=== PATIENT | female | born 1950 | race Caucasian/White ===

== ENCOUNTER 2017-10-15 10:28 | Inpatient (IN) ==
[2017-10-15 11:08] LABS: Baso % (Auto) 0.6 % (0.0-2.0); Eos # (Auto) 0.1 th/mm3 (0.0-0.4); Eos % (Auto) 0.8 % (0.0-4.0); Hematocrit 39.7 % (35.0-46.0); Hemoglobin 13.3 gm/dL (11.6-15.3); Lymph # (Auto) 1.2 th/mm3 (1.0-4.8); Lymph % (Auto) 17.3 % (9.0-44.0); Mean Corpuscular HGB Conc 33.5 % (32.0-36.0); Mean Corpuscular Hemoglobin 28.5 pg (27.0-34.0); Mean Corpuscular Volume 85.2 fL (80.0-100.0); Mean Platelet Volume 8.7 fL (7.0-11.0); Mono # (Auto) 0.8 th/mm3 (0.0-0.9); Neut # (Auto) 4.6 th/mm3 (1.8-7.7); Neut % (Auto) 69.3 % (16.0-70.0); Platelet Count 280 th/mm3 (150-450); Red Blood Count 4.66 mil/mm3 (4.00-5.30); Red Cell Distribution Width 14.4 % (11.6-17.2); White Blood Count 6.7 th/mm3 (4.0-11.0)
[2017-10-15 11:29] LABS: Alanine Aminotransferase 14 U/L (10-53); Anion Gap 9 meq/L (5-15); Aspartate Aminotransferase 18 U/L (15-37); Blood Urea Nitrogen 13 mg/dL (7-18); Calcium 9.1 mg/dL (8.5-10.1); Carbon Dioxide 26.2 meq/L (21.0-32.0); Chloride 108 meq/L (98-107); Glomerular Filtration Rate 62 mL/min (>89); Glucose,Random 90 mg/dL (74-106); Potassium 4.1 meq/L (3.5-5.1); Sodium 143 meq/L (136-145)
[2017-10-15 11:40] LABS: Alkaline Phosphatase 124 U/L (45-117); Total Protein 7.2 g/dL (6.4-8.2)
[2017-10-15 13:03] LABS: Bilirubin,Urine Negative (Negative); Clarity,Urine Hazy (Clear); Color,Urine Yellow (Yellw/Straw); Glucose,Urine (UA) Negative (Negative); Hyaline Casts,Urine 10 /lpf (0-3); Leukocyte Esterase,Urine Trace (Negative); Mucus,Urine Few /lpf (Occasional); Nitrite,Urine Negative (Negative); Specific Gravity,Urine 1.014 (1.002-1.035); Squamous Epithelial Cell,Urine <1 /hpf (0-5)
[2017-10-15 13:06] LABS: Amphetamine Screen,Urine Neg (Neg); Barbiturate Screen,Urine Neg (Neg); Cannabinoid Screen,Urine Neg (Neg); Cocaine Screen,Urine Neg (Neg)
[2017-10-15 13:08] LABS: Opiate Screen,Urine Neg (Neg)
[2017-10-15 13:44] LABS: Creatine Kinase 153 U/L (26-192)
[2017-10-15 13:57] LABS: Creatine Kinase MB 1.5 ng/mL (0.5-3.6)
--- NOTE | 2017-10-15 14:14 | ED ---
HPI General Chief Complaint: Psychiatric Symptoms Stated Complaint: Chest pain Time Seen by Provider: 10/15/17 13:11 Source: patient and family Mode of arrival: ambulatory Limitations: no limitations History of Present Illness HPI Narrative: 67-year-old female presents the ED for evaluation after 3 days of hearing voices in the middle of the night. She states that the voices tell her that they are going to harm her and her family members. Patient denies any psychiatric history. She states she does not take any medications. She denies SI or HI. She denies any illicit drug or alcohol use. She complains of intermittent headaches which she relates to a distant traumatic brain injury. She also states that she had chest pain, palpitations associated with an episode of heightened anxiety, described "as a panic attack" this morning before presenting to the ED. Resolved on presentation. Patient denies chronic health problems, takes no daily medications. Her family member at bedside states that the patient has a history of schizophrenia "but that was a long long time ago." Related Data Home Medications Medication Instructions Recorded Confirmed No Known Home Medications 10/15/17 10/15/17 Allergies Allergy/AdvReac Type Severity Reaction Status Date / Time Penicillins Allergy Difficulty Verified 10/15/17 13:53 Breathing Review of Systems Except as stated in HPI: all other systems reviewed are negative [facility] Medical History Medical History Breast tumor (Acute) H/O: hysterectomy (Acute) Inguinal hernia (Acute) TBI (traumatic brain injury) (Acute) Surgical History Surgical History H/O gastric bypass (Acute) Hx of tonsillectomy (Acute) Social History Social History Substance History: No History of Abuse Smoking Status: Former smoker How Often Do You Have a Drink Containing Alcohol: Never Recent Travel in [facility] within the Last 8 Weeks: No Recent Out of Country Travel within the Last 8 Weeks: No Immunization History Tetanus Immunization: >5 Years Exam Narrative Exam Narrative: GENERAL: Anxious white female in no acute distress. SKIN: Focused skin assessment warm/dry. HEAD: Atraumatic. Normocephalic. EYES: Pupils equal and round. No scleral icterus. No injection or drainage. ENT: No nasal bleeding or discharge. Mucous membranes pink and moist. NECK: Trachea midline. No JVD. CARDIOVASCULAR: Regular rate and rhythm. No murmur appreciated. RESPIRATORY: No accessory muscle use. Clear to auscultation. Breath sounds equal bilaterally. GASTROINTESTINAL: Abdomen soft, non-tender, nondistended. Hepatic and splenic margins not palpable. Active bowel sounds. MUSCULOSKELETAL: No obvious deformities. No clubbing. No cyanosis. No edema. Observed to walk with a normal gait. NEUROLOGICAL: Awake and alert. No obvious cranial nerve deficits. Motor grossly within normal limits. Normal speech. PSYCHIATRIC: Anxious, tangential, pressured speech. She does not seem to be responding to any internal stimuli. Course Initial Documented Vital Signs Temperature 98.6 F 10/15/17 10:43 Pulse Rate 90 10/15/17 10:43 Respiratory Rate 20 10/15/17 10:43 Blood Pressure 151/94 H 10/15/17 10:43 Pulse Oximetry 97 10/15/17 10:43 Last Documented Vital Signs Temperature 98.6 F 10/15/17 10:43 Pulse Rate 90 10/15/17 10:43 Respiratory Rate 20 10/15/17 10:43 Blood Pressure 151/94 H 10/15/17 10:43 Pulse Oximetry 97 10/15/17 10:43 Medical Decision Making MDM Narrative Medical decision making narrative: 67-year-old female presents the ED for voluntary psychiatric evaluation. Patient reports auditory hallucinations. She also complains of intermittent headaches and and episode of chest pain with palpitations that she describes as a panic attack before presentation today. Now resolved. Vitals reviewed. Physical exam is reassuring. The patient does have pressured speech, is tangential. She does not seem to be responding to internal stimuli. CBC, CMP, TSH, UA, EKG, cardiac enzymes, CT brain all without acute abnormality. Patient is medically clear for psychiatric evaluation. Differential Diagnosis Differential Diagnosis: Adjustment disorder versus anxiety versus bipolar versus depression versus dementia versus electrolyte disorder versus malingering versus mood disorder versus ODD versus psychosis versus PTSD versus schizophrenia versus schizoaffective disorder versus substance-induced mood disorder versus other Lab Data Result diagrams: 10/15/17 10:53 10/15/17 10:53 Lab Results 10/15/17 10/15/17 10/15/17 Range/Units 10:53 10:53 10:53 WBC 6.7 (4.0-11.0) th/mm3 RBC 4.66 (4.00-5.30) mil/mm3 Hgb 13.3 (11.6-15.3) gm/dL Hct 39.7 (35.0-46.0) % MCV 85.2 (80.0-100.0) fL MCH 28.5 (27.0-34.0) pg MCHC 33.5 (32.0-36.0) % RDW 14.4 (11.6-17.2) % Plt Count 280 (150-450) th/mm3 MPV 8.7 (7.0-11.0) fL Neut % (Auto) 69.3 (16.0-70.0) % Lymph % (Auto) 17.3 (9.0-44.0) % [place] % (Auto) 12.0 H (0.0-8.0) % Eos % (Auto) 0.8 (0.0-4.0) % Baso % (Auto) 0.6 (0.0-2.0) % Neut # (Auto) 4.6 (1.8-7.7) th/mm3 Lymph # (Auto) 1.2 (1.0-4.8) th/mm3 [place] # (Auto) 0.8 (0.0-0.9) th/mm3 Eos # (Auto) 0.1 (0.0-0.4) th/mm3 Baso # (Auto) 0.0 (0.0-0.2) th/mm3 WBC Differential . Differential Comment Auto diff final Sodium 143 (136-145) meq/L Potassium 4.1 (3.5-5.1) meq/L Chloride 108 H (98-107) meq/L Carbon Dioxide 26.2 (21.0-32.0) meq/L Anion Gap 9 (5-15) meq/L BUN 13 (7-18) mg/dL Creatinine 0.90 (0.50-1.00) mg/dL Estimated GFR 62 L (>89) mL/min Random Glucose 90 (74-106) mg/dL Calcium 9.1 (8.5-10.1) mg/dL Total Bilirubin 0.8 (0.2-1.0) mg/dL AST 18 (15-37) U/L ALT 14 (10-53) U/L Alkaline Phosphatase 124 H (45-117) U/L Total Creatine Kinase 153 (26-192) U/L CK-MB (CK-2) 1.5 (0.5-3.6) ng/mL Troponin I Less than 0.02 L (0.02-0.05) ng/mL Total Protein 7.2 (6.4-8.2) g/dL Albumin 4.0 (3.4-5.0) g/dL TSH 3.120 (0.358-3.740) uIU/mL Urine Color (Yellw/Straw) Urine Clarity (Clear) Urine pH (5.0-8.5) Ur Specific [place] (1.002-1.035) Urine Protein (Neg-Trace) mg/dL Urine Glucose (UA) (Negative) mg/dL Urine Ketones (Negative) mg/dL Urine Occult Blood (Negative) Urine Nitrate (Negative) Urine Bilirubin (Negative) Urine Urobilinogen (Less than 2) mg/dL Ur Leukocyte Esterase (Negative) Urine RBC (0-3) /hpf Urine WBC (0-5) /hpf Ur Squamous Epith Cells (0-5) /hpf Hyaline Casts (0-3) /lpf Urine Mucus (Occasional) /lpf Urine Opiates Screen (Neg) Ur Barbiturates Screen (Neg) Ur Amphetamines Screen (Neg) U Benzodiazepines Scrn (Neg) Urine Cocaine Screen (Neg) U Cannabinoids Screen (Neg) Serum Alcohol Less than 3 (0-5) mg/dL 10/15/17 10/15/17 Range/Units 11:34 11:34 WBC (4.0-11.0) th/mm3 RBC (4.00-5.30) mil/mm3 Hgb (11.6-15.3) gm/dL Hct (35.0-46.0) % MCV (80.0-100.0) fL MCH (27.0-34.0) pg MCHC (32.0-36.0) % RDW (11.6-17.2) % Plt Count (150-450) th/mm3 MPV (7.0-11.0) fL Neut % (Auto) (16.0-70.0) % Lymph % (Auto) (9.0-44.0) % [place] % (Auto) (0.0-8.0) % Eos % (Auto) (0.0-4.0) % Baso % (Auto) (0.0-2.0) % Neut # (Auto) (1.8-7.7) th/mm3 Lymph # (Auto) (1.0-4.8) th/mm3 [place] # (Auto) (0.0-0.9) th/mm3 Eos # (Auto) (0.0-0.4) th/mm3 Baso # (Auto) (0.0-0.2) th/mm3 WBC Differential Differential Comment Sodium (136-145) meq/L Potassium (3.5-5.1) meq/L Chloride (98-107) meq/L Carbon Dioxide (21.0-32.0) meq/L Anion Gap (5-15) meq/L BUN (7-18) mg/dL Creatinine (0.50-1.00) mg/dL Estimated GFR (>89) mL/min Random Glucose (74-106) mg/dL Calcium (8.5-10.1) mg/dL Total Bilirubin (0.2-1.0) mg/dL AST (15-37) U/L ALT (10-53) U/L Alkaline Phosphatase (45-117) U/L Total Creatine Kinase (26-192) U/L CK-MB (CK-2) (0.5-3.6) ng/mL Troponin I (0.02-0.05) ng/mL Total Protein (6.4-8.2) g/dL Albumin (3.4-5.0) g/dL TSH (0.358-3.740) uIU/mL Urine Color Yellow (Yellw/Straw) Urine Clarity Hazy H (Clear) Urine pH 5.0 (5.0-8.5) Ur Specific [place] 1.014 (1.002-1.035) Urine Protein Negative (Neg-Trace) mg/dL Urine Glucose (UA) Negative (Negative) mg/dL Urine Ketones Trace H (Negative) mg/dL Urine Occult Blood Negative (Negative) Urine Nitrate Negative (Negative) Urine Bilirubin Negative (Negative) Urine Urobilinogen 2.0 H (Less than 2) mg/dL Ur Leukocyte Esterase Trace H (Negative) Urine RBC 1 (0-3) /hpf Urine WBC 2 (0-5) /hpf Ur Squamous Epith Cells <1 (0-5) /hpf Hyaline Casts 10 (0-3) /lpf Urine Mucus Few H (Occasional) /lpf Urine Opiates Screen Neg (Neg) Ur Barbiturates Screen Neg (Neg) Ur Amphetamines Screen Neg (Neg) U Benzodiazepines Scrn Neg (Neg) Urine Cocaine Screen Neg (Neg) U Cannabinoids Screen Neg (Neg) Serum Alcohol (0-5) mg/dL Imaging Data Radiologist's impression: Head CT 10/15/17 13:30 CONCLUSION: 1. No acute intracranial abnormality. Discharge Plan Discharge Disposition Patient Disposition: 30 Still Patient Discharge Condition Condition: Stable Discharge Details Diagnosis: Medical clearance for psychiatric admission Physicians Team ED Provider: Tariq Zimmerman ED Midlevel Provider: Maricruz Castaneda Primary Care Provider: Primary Care Santo,Dona Rxs /Orders / Referrals /Forms Prescriptions: No Action No Known Home Medications RF: 0 Status ED Status: Medically Cleared
--- NOTE | 2017-10-15 14:44 | CT ---
EXAM DATE: 10/15/2017 2:38 PM EDT AGE/SEX: 67 years / Female INDICATIONS: Altered mental status. CLINICAL DATA: This is the patient's initial encounter. Patient reports that signs and symptoms have been present for 1 day and indicates a pain score of 0/10. MEDICAL/SURGICAL HISTORY: None. None. RADIATION DOSE: 56.35 CTDI (mGy) COMPARISON: No prior exams available for comparison. TECHNIQUE: CT of the head without contrast. Using automated exposure control and adjustment of the mA and/or kV according to patient size, radiation dose was kept as low as reasonably achievable to ob tain optimal diagnostic quality images. DICOM format image data is available electronically for revi ew and comparison. FINDINGS: Cerebrum: Mild diffuse cerebral atrophy. The ventricles are normal for degree of atrophy. No evidenc e of midline shift, mass lesion, hemorrhage or acute infarction. No extraaxial fluid collections are seen. Supraclinoid internal carotid artery plaque. Posterior Fossa: The cerebellum and brainstem are intact. The 4th ventricle is midline. The cerebe llopontine angle is unremarkable. Extracranial: The visualized portion of the orbits is intact. Skull: The calvaria is intact. No evidence of skull fracture. CONCLUSION: 1. No acute intracranial abnormality. Electronically signed by: Daniel Mata MD 10/15/2017 2:43 PM EDT
[2017-10-15] MEDS ORDERED: Aluminum/Magnesium/Simethacone Susp 30 ML UDC PO PRN (15:48)
--- NOTE | 2017-10-15 15:55 | ED ---
HPI - Psych - General Source: patient, family Mode of arrival: ambulatory Limitations: altered mental status - History of Present Illness MD complaint: other (Auditory hallucinations) Onset (ago): week(s) Duration: constant, getting worse History of same: No Relieving factors: none Exacerbating factors: none Associated psychiatric symptoms: auditory hallucinations Associated symptoms: headache Treatments prior to arrival: none - General Chief Complaint: Psychiatric Symptoms Stated Complaint: Chest pain Time Seen by Provider: 10/15/17 13:11 - History of Present Illness HPI Narrative: This is a 67-year-old , female who presents voluntarily to this facility or auditory hallucinations. She has been placed under a Ha[place]on act by the emergency room PA. She has not been previously treated by the psychiatric department at this facility. Reviewed electronic medical record, labs, discuss case with staff. Patient was examined in her room in the main ED. Is awake, alert, and oriented 4. Her speech is clear, rapid, pressured, and tangential. She denies suicidal or homicidal ideation. She endorses auditory hallucinations which she reported began approximately a week ago in the middle of the night when she awoke to a voice which said "I will kill her". Since then she maintains that she has been hearing voices telling her that they are going to kill her and her daughter to. Her daughter advises that prior to that her mother had complained about the neighbors making too much noise, and she reports that are no neighbors making noise. I can elicit no delusional material. There is no indication of internal stimulation nor thought blocking. Her mood is anxious and her affect is labile. She became irritated with this provider on multiple occasions stating "this hospital almost killed me". 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 She made for 17 years ago. She states that she has never been treated for mental illness. Denies any previous suicide attempts. She does report her father recently of Alzheimer's. She denies smoking cigarettes, drinking alcohol, or using drugs. She reports that she has 5 daughters and lives with her youngest, Kerrie who is at the bedside. Her daughter advises is gotten to the point that the mother is afraid to sleep in her room house and wanted to sleep in a car recently. (Laura Damon) - Related Data Home Medications Medication Instructions Recorded Confirmed No Known Home Medications 10/15/17 10/15/17 Allergies Allergy/AdvReac Type Severity Reaction Status Date / Time Penicillins Allergy Difficulty Verified 10/15/17 13:53 Breathing PMFSH - History History Provided By: Patient, Significant Other - Medical History Medical History: Medical History (Last Reviewed 10/15/17 @ 16:20 by LUNA Branham) Breast tumor H/O: hysterectomy Inguinal hernia TBI (traumatic brain injury) - Surgical History Surgical History: Surgical History (Last Reviewed 10/15/17 @ 16:20 by LUNA Branham) H/O gastric bypass Hx of tonsillectomy - Tobacco History Smoking Status: Former smoker - Alcohol History How Often Do You Have a Drink Containing Alcohol: Never - Substance Use History Substance History: No History of Abuse - Travel History Recent Travel in the [place] Within the Last 8 Weeks: No Recent Travel Out of the Country Within the Last 8 Weeks: No - Immunization History Tetanus Immunization: >5 Years Psychiatric History - Psychiatric History Psychiatric Treatment History: Denies Previous Treatment Physical Exam - General Limitations: no limitations General appearance: alert Mental Status Examination Appearance: Appropriate, Well dressed/well groomed Consciousness: Alert, Vigilant Orientation: x4 Motor Activity: Normal gait Speech: Unremarkable Language: Adequate Fund of Knowledge: Adequate Attention and Concentration: Easily distracted Memory: Unremarkable Mood: Anxious Affect: Labile Thought Process & Associations: Loose associations, Tangential Thought Content: Hallucinations Hallucination Type: Auditory Delusion Type: None Suicidal Ideation: No Suicidal Plan: No Suicidal Intention: No Homicidal Ideation: No Homicidal Plan: No Homicidal Intention: No Insight: Fair Judgment: Impulsive Initial Documented Vital Signs Temperature 98.6 F 10/15/17 10:43 Pulse Rate 90 10/15/17 10:43 Respiratory Rate 20 10/15/17 10:43 Blood Pressure 151/94 H 10/15/17 10:43 Pulse Oximetry 97 10/15/17 10:43 Last Documented Vital Signs Temperature 98.6 F 10/15/17 10:43 Pulse Rate 90 10/15/17 10:43 Respiratory Rate 20 10/15/17 10:43 Blood Pressure 151/94 H 10/15/17 10:43 Pulse Oximetry 97 10/15/17 10:43 MDM - Psych - Diagnosis (1) Unspecified psychosis Status: Acute - Lab Data Attestation: I reviewed the patient's lab results. Result diagrams: 10/15/17 10:53 10/15/17 10:53 - [facility] Narrative Medical decision making narrative: Given that this patient has a new onset psychosis with auditory hallucinations that are interfering with her life to the point that she is afraid to sleep in her own home, she will be admitted to a locked inpatient psychiatric unit for further evaluation and treatment as deemed necessary. She will be admitted under the [place]on act. (Laura Damon) - Lab Data Lab Results 10/15/17 10/15/17 10/15/17 Range/Units 10:53 10:53 10:53 WBC 6.7 (4.0-11.0) th/mm3 RBC 4.66 (4.00-5.30) mil/mm3 Hgb 13.3 (11.6-15.3) gm/dL Hct 39.7 (35.0-46.0) % MCV 85.2 (80.0-100.0) fL MCH 28.5 (27.0-34.0) pg MCHC 33.5 (32.0-36.0) % RDW 14.4 (11.6-17.2) % Plt Count 280 (150-450) th/mm3 MPV 8.7 (7.0-11.0) fL Neut % (Auto) 69.3 (16.0-70.0) % Lymph % (Auto) 17.3 (9.0-44.0) % [place] % (Auto) 12.0 H (0.0-8.0) % Eos % (Auto) 0.8 (0.0-4.0) % Baso % (Auto) 0.6 (0.0-2.0) % Neut # (Auto) 4.6 (1.8-7.7) th/mm3 Lymph # (Auto) 1.2 (1.0-4.8) th/mm3 [place] # (Auto) 0.8 (0.0-0.9) th/mm3 Eos # (Auto) 0.1 (0.0-0.4) th/mm3 Baso # (Auto) 0.0 (0.0-0.2) th/mm3 WBC Differential . Differential Comment Auto diff final Sodium 143 (136-145) meq/L Potassium 4.1 (3.5-5.1) meq/L Chloride 108 H (98-107) meq/L Carbon Dioxide 26.2 (21.0-32.0) meq/L Anion Gap 9 (5-15) meq/L BUN 13 (7-18) mg/dL Creatinine 0.90 (0.50-1.00) mg/dL Estimated GFR 62 L (>89) mL/min Random Glucose 90 (74-106) mg/dL Calcium 9.1 (8.5-10.1) mg/dL Total Bilirubin 0.8 (0.2-1.0) mg/dL AST 18 (15-37) U/L ALT 14 (10-53) U/L Alkaline Phosphatase 124 H (45-117) U/L Total Creatine Kinase 153 (26-192) U/L CK-MB (CK-2) 1.5 (0.5-3.6) ng/mL Troponin I Less than 0.02 L (0.02-0.05) ng/mL Total Protein 7.2 (6.4-8.2) g/dL Albumin 4.0 (3.4-5.0) g/dL TSH 3.120 (0.358-3.740) uIU/mL Urine Color (Yellw/Straw) Urine Clarity (Clear) Urine pH (5.0-8.5) Ur Specific [place] (1.002-1.035) Urine Protein (Neg-Trace) mg/dL Urine Glucose (UA) (Negative) mg/dL Urine Ketones (Negative) mg/dL Urine Occult Blood (Negative) Urine Nitrate (Negative) Urine Bilirubin (Negative) Urine Urobilinogen (Less than 2) mg/dL Ur Leukocyte Esterase (Negative) Urine RBC (0-3) /hpf Urine WBC (0-5) /hpf Ur Squamous Epith Cells (0-5) /hpf Hyaline Casts (0-3) /lpf Urine Mucus (Occasional) /lpf Urine Opiates Screen (Neg) Ur Barbiturates Screen (Neg) Ur Amphetamines Screen (Neg) U Benzodiazepines Scrn (Neg) Urine Cocaine Screen (Neg) U Cannabinoids Screen (Neg) Serum Alcohol Less than 3 (0-5) mg/dL 10/15/17 10/15/17 Range/Units 11:34 11:34 WBC (4.0-11.0) th/mm3 RBC (4.00-5.30) mil/mm3 Hgb (11.6-15.3) gm/dL Hct (35.0-46.0) % MCV (80.0-100.0) fL MCH (27.0-34.0) pg MCHC (32.0-36.0) % RDW (11.6-17.2) % Plt Count (150-450) th/mm3 MPV (7.0-11.0) fL Neut % (Auto) (16.0-70.0) % Lymph % (Auto) (9.0-44.0) % [place] % (Auto) (0.0-8.0) % Eos % (Auto) (0.0-4.0) % Baso % (Auto) (0.0-2.0) % Neut # (Auto) (1.8-7.7) th/mm3 Lymph # (Auto) (1.0-4.8) th/mm3 [place] # (Auto) (0.0-0.9) th/mm3 Eos # (Auto) (0.0-0.4) th/mm3 Baso # (Auto) (0.0-0.2) th/mm3 WBC Differential Differential Comment Sodium (136-145) meq/L Potassium (3.5-5.1) meq/L Chloride (98-107) meq/L Carbon Dioxide (21.0-32.0) meq/L Anion Gap (5-15) meq/L BUN (7-18) mg/dL Creatinine (0.50-1.00) mg/dL Estimated GFR (>89) mL/min Random Glucose (74-106) mg/dL Calcium (8.5-10.1) mg/dL Total Bilirubin (0.2-1.0) mg/dL AST (15-37) U/L ALT (10-53) U/L Alkaline Phosphatase (45-117) U/L Total Creatine Kinase (26-192) U/L CK-MB (CK-2) (0.5-3.6) ng/mL Troponin I (0.02-0.05) ng/mL Total Protein (6.4-8.2) g/dL Albumin (3.4-5.0) g/dL TSH (0.358-3.740) uIU/mL Urine Color Yellow (Yellw/Straw) Urine Clarity Hazy H (Clear) Urine pH 5.0 (5.0-8.5) Ur Specific [place] 1.014 (1.002-1.035) Urine Protein Negative (Neg-Trace) mg/dL Urine Glucose (UA) Negative (Negative) mg/dL Urine Ketones Trace H (Negative) mg/dL Urine Occult Blood Negative (Negative) Urine Nitrate Negative (Negative) Urine Bilirubin Negative (Negative) Urine Urobilinogen 2.0 H (Less than 2) mg/dL Ur Leukocyte Esterase Trace H (Negative) Urine RBC 1 (0-3) /hpf Urine WBC 2 (0-5) /hpf Ur Squamous Epith Cells <1 (0-5) /hpf Hyaline Casts 10 (0-3) /lpf Urine Mucus Few H (Occasional) /lpf Urine Opiates Screen Neg (Neg) Ur Barbiturates Screen Neg (Neg) Ur Amphetamines Screen Neg (Neg) U Benzodiazepines Scrn Neg (Neg) Urine Cocaine Screen Neg (Neg) U Cannabinoids Screen Neg (Neg) Serum Alcohol (0-5) mg/dL
--- NOTE | 2017-10-15 20:15 | ECG ---
Date Performed: 10/15/2017 Time Performed: 10:53:42 PTAGE: 67 years EKG: Sinus rhythm LOW QRS VOLTAGE IN PRECORDIAL LEADS BORDERLINE ECG NO PREVIOUS TRACING DOCTOR: Daniela Genao Interpretating Date/Time 10/15/2017 20:14:53
[2017-10-16 07:20] LABS: Anion Gap 8 meq/L (5-15); Blood Urea Nitrogen 8 mg/dL (7-18); Carbon Dioxide 29.3 meq/L (21.0-32.0); Chloride 101 meq/L (98-107); Cholesterol 153 mg/dL (120-200); Glomerular Filtration Rate Greater Than 89 mL/min (>89); Glucose,Random 86 mg/dL (74-106); Potassium 3.3 meq/L (3.5-5.1); Sodium 138 meq/L (136-145)
[2017-10-16 07:23] LABS: Chol/HDL Ratio 1.88 Ratio; HDL Cholesterol 81.2 mg/dL (40.0-60.0); LDL Cholesterol,Calculated 59 mg/dL (0-99); Triglycerides 63 mg/dL (42-150)
[2017-10-16] MEDS ORDERED: Aluminum/Magnesium/Simethacone Susp 30 ML UDC PO PRN (12:49)
--- NOTE | 2017-10-16 13:01 | P.HPPSY ---
Provisional Diagnosis Admission Date: October 15, 2017 15:53 Rillito I.: Psychotic disorder brief, rule out delusional disorder Competence Certification of Person's Competence To Provide Express and Informed Consent I have personally examined Alin Ly, a person being served at [facility] on, October 16, 2017 1252. Express and informed consent means consent voluntarily given in writing, by a competent person, after sufficient explanation and disclosure of the subject matter involved to enable the person to make a knowing and willful decision without any element of force, fraud, deceit, duress, or other form of constraint or coercion. This person is 18 years of age or older, is not now known to be incompetent to consent to treatment with a guardian advocate, and does not have a health care surrogate or proxy currently making medical treatment decisions. I have found this person to be one of the following: [] Competent to provide express and informed consent, as defined above, for voluntary admission to this facility and is competent to provide express and informed consent for treatment. He/she has the consistent capacity to make well reasoned, willful, and knowing decisions concerning his or her medical or mental health treatment. The person fully and consistently understands the purpose of the admission for examination/placement and is fully capable of personally exercising all rights assured under [place] [] Incompetent to provide express and informed consent to voluntary admission, and this is incompetent to provide express and informed consent to treatment. The person must be transferred to involuntary status and a petition for a guardian advocate filed with the Circuit Court. [xx] Refusing to provide express and informed consent to voluntary admission but is competent to provide express and informed consent for treatment. The person must be discharged or transferred to involuntary status. Form shall be completed within 24 hours of a person's arrival at the receiving facility and filed in the clinical record of each person: 1. Admitted on a voluntary basis 2. Permitted to provide express and informed consent to his/her own treatment 3. Allowed to transfer from involuntary to voluntary status 4. Prior to permitting a person to consent to his or her own treatment after having been previously found incompetent to consent to treatment. History of Present Illness Capacity: Lacks capacity History of Present Illness: Patient is 67-year-old white female who comes here under a [place] act signed by Dr. Serrano dated 10/15/2017 at 1:53 PM that document reviewed stating schizophrenia also stating patient hearing voices 3 days states voices a "they are going to kill me" family at bedside states the patient is a history of schizophrenia. Patient seen screen in the ED urine toxicology negative blood alcohol level negative. At the present time patient sitting in her room nurse Jenny present throughout session. Patient is thin slight slender white female appears her stated age with blonde hair. States carlos about 2 months ago her daughter and herself moved into an apartment. It appears patient has been hearing voices through the [place] this is developed in the delusion that people are speaking and identifying she and her daughter in a threatening to kill them. Patient believes that may be some type of a conspiracy that the FBI is involved with this and that the [employer] is involved with this. Patient also patient has some mild obsessive-compulsive behaviors related to this she states she did have a gastric bypass done a number of years ago that she is very specific dietary needs. While here she has refused to eat any food that is not packaged and sealed including fluids. 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 She vaguely acknowledges that there may be some perceptual abnormalities she feels this is all real including conspirators. She denies suicidality. I did talk the patient's daughter's name is Kerrie at [phone] with knowledge of this brief episode they have been in her apartment about 2 months, these voices or started within the past week. The daughter acknowledges that this appears to be delusional in nature. She did acknowledge her mother has had a somewhat of a paranoid behavior through much of her adult life that [place] has had some obsessive-compulsive behaviors. However patient's daughter whose name is Kerrie also feels that she can manage h reassessments through our emergency department thus patient will be discharged today to her daughter no Rx by me to follow-up as mentioned above - Inpatient Certification I certify that the inpatient services were ordered in accordance with Medicare regulations governing the order. This includes certification that hospital inpatient services are reasonable and necessary and in the case of services not specified as inpatient-only under 42 CFR 419.22(n), that they are appropriately provided as inpatient services in accordance to with the 2-midnight benchmark under 43 CFR 412.3(e) I certify that inpatient psychiatric hospital services are medically necessary. Evaluation and treatment and/or diagnostic testing are expected to improve the patient's condition. The patient needs on a daily basis, active treatment furnished directly by or requiring the supervision of inpatient psychiatric facility personnel. Estimated Total Length of Stay (Days): 1 Plans for Post Hospital Care: Home Review of Systems Patient is vague digestive complaints that she describes to her gastric bypass there is a significant flavor of OCD with this [facility] - History History Provided By: Patient, Family Member (Patient's daughter Kerrie) - Medical History Medical History: Medical History (Last Reviewed 10/15/17 @ 16:20 by LUNA Branham) Breast tumor H/O: hysterectomy Inguinal hernia TBI (traumatic brain injury) - Surgical History Surgical History: Surgical History (Last Reviewed 10/15/17 @ 16:20 by LUNA Branham) H/O gastric bypass Hx of tonsillectomy - Tobacco History Second Hand Smoke Exposure: No Tobacco Use In Past 30 Days: No Smoking Status: Former smoker - Alcohol History How Often Do You Have a Drink Containing Alcohol: Never - Substance Use History Substance History: No History of Abuse - Travel History Recent Travel in the [place] Within the Last 8 Weeks: No Recent Travel Out of the Country Within the Last 8 Weeks: No - Immunization History Tetanus Immunization: <5 Years Hx Influenza Vaccine This Season: No Quality Measures - Psychiatric History Psychological trauma history: Patient denies Violence risk to others in the last 6 months: Low Violence risk to self in the last 6 months: Low - Substance Abuse History Drug or alcohol use in the past 12 months: Denies - Patient Strengths Patient's strengths (minimum of 2): Patient verbal able access healthcare in strong support of family Medications and Allergies Active Medications: Active Medications Al Hydrox/Mg Hydrox/Simethicone (Mag-Al Plus Susp Liq) 30 ml PO Q6H PRN PRN Reason: DYSPEPSIA Al Hydrox/Mg Hydrox/Simethicone (Mag-Al Plus Susp Liq) 30 ml PO Q6H PRN PRN Reason: DYSPEPSIA Allergies Allergy/AdvReac Type Severity Reaction Status Date / Time Penicillins Allergy Difficulty Verified 10/15/17 13:53 Breathing Home Medications Medication Instructions Recorded Confirmed Type No Known Home Medications 10/15/17 10/15/17 History Results - Labs CBC & Chem 7: 10/15/17 10:53 10/16/17 06:30 Labs: Laboratory Results - last 24 hr 10/15/17 10/15/17 10/15/17 10:53 11:34 11:34 Sodium Potassium Chloride Carbon Dioxide Anion Gap BUN Creatinine Estimated GFR Random Glucose Calcium Total Creatine Kinase 153 CK-MB (CK-2) 1.5 Troponin I Less than 0.02 L Triglycerides Cholesterol LDL Cholesterol, Calc HDL Cholesterol Cholesterol/HDL Ratio Urine Color Yellow Urine Clarity Hazy H Urine pH 5.0 Ur Specific [place] 1.014 Urine Protein Negative Urine Glucose (UA) Negative Urine Ketones Trace H Urine Occult Blood Negative Urine Nitrate Negative Urine Bilirubin Negative Urine Urobilinogen 2.0 H Ur Leukocyte Esterase Trace H Urine RBC 1 Urine WBC 2 Ur Squamous Epith Cells <1 Hyaline Casts 10 Urine Mucus Few H Urine Opiates Screen Neg Ur Barbiturates Screen Neg Ur Amphetamines Screen Neg U Benzodiazepines Scrn Neg Urine Cocaine Screen Neg U Cannabinoids Screen Neg 10/16/17 06:30 Sodium 138 Potassium 3.3 L D Chloride 101 Carbon Dioxide 29.3 Anion Gap 8 BUN 8 Creatinine 0.64 Estimated GFR Greater than 89 Random Glucose 86 Calcium 9.0 Total Creatine Kinase CK-MB (CK-2) Troponin I Triglycerides 63 Cholesterol 153 LDL Cholesterol, Calc 59 HDL Cholesterol 81.2 H Cholesterol/HDL Ratio 1.88 Urine Color Urine Clarity Urine pH Ur Specific [place] Urine Protein Urine Glucose (UA) Urine Ketones Urine Occult Blood Urine Nitrate Urine Bilirubin Urine Urobilinogen Ur Leukocyte Esterase Urine RBC Urine WBC Ur Squamous Epith Cells Hyaline Casts Urine Mucus Urine Opiates Screen Ur Barbiturates Screen Ur Amphetamines Screen U Benzodiazepines Scrn Urine Cocaine Screen U Cannabinoids Screen - Imaging Impressions Head CT 10/15/17 13:30 CONCLUSION: 1. No acute intracranial abnormality. Exam Vital signs: Vital Signs 10/15/17 16:28 10/15/17 18:15 10/16/17 06:00 Temperature 98.1 F 97.9 F Pulse Rate 90 80 71 Respiratory Rate 19 16 18 Blood Pressure 154/69 H 166/77 H 158/83 H Pulse Oximetry 96 98 97 Intake & Output 10/15/17 10/16/17 10/16/17 18:59 06:59 18:59 Weight 60.7 kg Other: Date of Last Bowel Movement 10/15/17 Weight On Admission 60.7 kg Narrative: Patient sitting in her room nurse Jenny present throughout the session, she is in no acute distress no complaints of chest pain, she is in no respiratory distress, no complaints of abdominal pain patient moving all 4 extremities without difficulty Mental Status Examination Appearance: Appropriate Consciousness: Alert, Vigilant Orientation: x4 Motor Activity: Normal gait Speech: Unremarkable Language: Adequate Fund of Knowledge: Adequate Attention and Concentration: Easily distracted Memory: Unremarkable Mood: Anxious, Other (Euthymic) Affect: Other (Slight increased range and intensity) Thought Process & Associations: Intact, Tangential Thought Content: Hallucinations, Delusional Hallucination Type: Auditory Delusion Type: None Suicidal Ideation: No Suicidal Plan: No Suicidal Intention: No Homicidal Ideation: No Homicidal Plan: No Homicidal Intention: No Insight: Poor Judgment: Poor Assessment and Plan - Assessment (1) Delusional disorder Code(s): F22 - Delusional disorders Status: Acute (2) Brief psychotic disorder Code(s): F23 - Brief psychotic disorder Status: Acute - Plan Plan: Estimated LOS: [] day patient remains delusional with a psychotic flavor auditory hallucinations. Though she denies suicidality homicidality. The daughter has been contacted with it and extended discussion with her concerning her mother. She is willing to take full responsibility for her mother at all to arrange appropriate follow-ups including psychiatric follow-up neurological follow-up and primary care follow-up will be no Rx by me Justification for Continued Inpatient Stay: Patient was discharged to her daughter today Discharge Planning: To go home with daughter
--- NOTE | 2017-10-16 13:18 | P.DSPSY ---
Psychiatry Discharge Summary Inpatient Psychiatric care?: Yes Advance Directives: No Mental Health Advance Directive: No Health Care Proxy: No - Admission Admission Date: October 15, 2017 15:53 - Admission Diagnosis (1) Delusional disorder Code(s): F22 - Delusional disorders (2) Brief psychotic disorder Code(s): F23 - Brief psychotic disorder Brief History: Patient is 67-year-old white female who comes here under a [place] act signed by Dr. Serrano dated 10/15/2017 at 1:53 PM that document reviewed stating schizophrenia also stating patient hearing voices 3 days states voices a "they are going to kill me" family at bedside states the patient is a history of schizophrenia. Patient seen screen in the ED urine toxicology negative blood alcohol level negative. At the present time patient sitting in her room nurse Jenny present throughout session. Patient is thin slight slender white female appears her stated age with blonde hair. States carlos about 2 months ago her daughter and herself moved into an apartment. It appears patient has been hearing voices through the [place] this is developed in the delusion that people are speaking and identifying she and her daughter in a threatening to kill them. Patient believes that may be some type of a conspiracy that the FBI is involved with this and that the [employer] is involved with this. Patient also patient has some mild obsessive-compulsive behaviors related to this she states she did have a gastric bypass done a number of years ago that she is very specific dietary needs. While here she has refused to eat any food that is not packaged and sealed including fluids. 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 She vaguely acknowledges that there may be some perceptual abnormalities she feels this is all real including conspirators. She denies suicidality. I did talk the patient's daughter's name is Kerrie at [phone] with knowledge of this brief episode they have been in her apartment about 2 months, these voices or started within the past week. The daughter acknowledges that this appears to be delusional in nature. She did acknowledge her mother has had a somewhat of a paranoid behavior through much of her adult life that [place] has had some obsessive-compulsive behaviors. However patient's daughter whose name is Kerrie also feels that she can manage h reassessments through our emergency department thus patient will be discharged today to her daughter no Rx by me to follow-up as mentioned above Tobacco Use In Past 30 Days: No How Often Do You Have a Drink Containing Alcohol: Never Hospital Course: Please see his note dictated under brief history. Patient at this time does not meet Hairston criteria lift Hairston act after discussion with patient's daughter daughter is willing to take responsibility for every follow-up care in the community. Daughter feels mother do better at home with daughter caring for her related to living situation food preparation appetite and overall compliance thus patient be discharged today no Rx by me family to make arrangements for psychiatric follow-up neurology follow the community - Discharge Discharge Date: 10/16/17 - Discharge Diagnosis (1) Delusional disorder Diagnosis: Principal Code(s): F22 - Delusional disorders Status: Acute (2) Brief psychotic disorder Diagnosis: Principal Code(s): F23 - Brief psychotic disorder Status: Acute Discharge Disposition: Home - Discharge Instructions Discharge Diet: Regular Diet Activities You Can Perform: Regular- No Restrictions - Discharge Time > 30 minutes Mental Status Examination Appearance: Appropriate Consciousness: Alert, Vigilant Orientation: x4 Motor Activity: Normal gait Speech: Unremarkable Language: Adequate Fund of Knowledge: Adequate Attention and Concentration: Easily distracted Memory: Unremarkable Mood: Anxious, Other (Euthymic) Affect: Other (Slight increased range and intensity) Thought Process & Associations: Intact, Tangential Thought Content: Hallucinations, Delusional Hallucination Type: Auditory Delusion Type: None Suicidal Ideation: No Suicidal Plan: No Suicidal Intention: No Homicidal Ideation: No Homicidal Plan: No Homicidal Intention: No Insight: Poor Judgment: Poor Discharge/Advance Care Plan - Results Vital Signs: Last Vital Signs Temp 97.9 F 10/16/17 06:00 Pulse 71 10/16/17 06:00 Resp 18 10/16/17 06:00 BP 158/83 H 10/16/17 06:00 Pulse Ox 97 10/16/17 06:00 Lab Results: Abnormal Lab Results 10/15/17 10/16/17 10:53 06:30 Sodium 138 Potassium 3.3 L D Chloride 101 Carbon Dioxide 29.3 Anion Gap 8 BUN 8 Creatinine 0.64 Estimated GFR Greater than 89 Random Glucose 86 Calcium 9.0 Total Creatine Kinase 153 CK-MB (CK-2) 1.5 Troponin I Less than 0.02 L Triglycerides 63 Cholesterol 153 LDL Cholesterol, Calc 59 HDL Cholesterol 81.2 H Cholesterol/HDL Ratio 1.88 Laboratory Results Triglycerides 63 mg/dL (42-150) 10/16/17 06:30 Cholesterol 153 mg/dL (120-200) 10/16/17 06:30 LDL Cholesterol, Calc 59 mg/dL (0-99) 10/16/17 06:30 HDL Cholesterol 81.2 mg/dL (40.0-60.0) H 10/16/17 06:30 TSH 3.120 uIU/mL (0.358-3.740) 10/15/17 10:53 Summary of Procedures: None done Imaging: ITS Impressions Head CT 10/15/17 13:30 CONCLUSION: 1. No acute intracranial abnormality. Pending Results: None - Medications Number of antipsychotic medications at discharge: 0 - Discharge Care Plan Goals to Promote Your Health: * To prevent worsening of your condition and complications * To maintain your health at the optimal level Directions to Meet Your Goals: Take your medications as prescribed Follow your dietary instruction Follow activity as directed Keep your appointments as scheduled Take your immunizations and boosters as scheduled If your symptoms worsen call your PCP, if no PCP go to Urgent Care Center or Emergency Room For 22/10 questions related to your inpatient stay or results of tests pending at discharge, please contact Dr. Balaji Estrella MD at Smoking is Dangerous to Your Health. Avoid second hand smoking
[2017-10-16 18:53] LABS: Hemoglobin A1c 4.8 % (4.3-6.0)
== END 2017-10-16 14:00 | disposition home or self-care (01) ==
LOC: NEPE 10:28 → NEDA 15:53 → H260 16:55 → NEDA 17:15
PROVIDERS: ADMIT Psychiatry & Neurology Psychiatry; ATTEND Psychiatry & Neurology Psychiatry
DX: Z87.820 Personal history of traumatic brain injury; Z87.891 Personal history of nicotine dependence; F23 Brief psychotic disorder; Z98.84 Bariatric surgery status; F22 Delusional disorders

== ENCOUNTER 2017-10-25 02:54 | Inpatient (IN) ==
--- NOTE | 2017-10-25 03:12 | ED ---
HPI General Stated complaint: Psych Eval Time Seen by Provider: 10/25/17 03:09 History of Present Illness HPI narrative: 67-year-old female presents under [place] act [place] by [place] [employer]. Patient reports over the past 2 months she has been having auditory hallucinations. Specifically she reports that she is constantly hearing voices saying that they are going to kill her and her daughter. She reports that she moved into a new house in July symptoms have been escalating since then. Symptoms are moderate, no obvious aggravating or alleviating factors. Denies any drug or alcohol use, suicidal homicidal ideation. The patient was seen here earlier today for evaluation of the same symptoms. She reports that she was also seen at [facility] today. Related Data Home Medications Medication Instructions Recorded Confirmed No Known Home Medications 10/15/17 10/15/17 Allergies Allergy/AdvReac Type Severity Reaction Status Date / Time Penicillins Allergy Difficulty Verified 10/15/17 13:53 Breathing Review of Systems Except as stated in HPI: all other systems reviewed are negative [facility] Social History Social History Substance History: No History of Abuse Second Hand Smoke Exposure: No Smoking Status: Former smoker Tobacco Type: Cigarettes How Often Do You Have a Drink Containing Alcohol: Unable to Obtain Exam Narrative Exam Narrative: GENERAL: Well developed well-nourished female no acute distress SKIN: Warm and dry. HEAD: Atraumatic. Normocephalic. EYES: Pupils equal and round. No scleral icterus. No injection or drainage. ENT: No nasal bleeding or discharge. Mucous membranes pink and moist. NECK: Trachea midline. No JVD. CARDIOVASCULAR: Regular rate and rhythm. No murmur appreciated. RESPIRATORY: No accessory muscle use. Clear to auscultation. Breath sounds equal bilaterally. GASTROINTESTINAL: Abdomen soft, non-tender, nondistended. Hepatic and splenic margins not palpable. MUSCULOSKELETAL: No obvious deformities. No clubbing. No cyanosis. No edema. NEUROLOGICAL: Awake and alert. No obvious cranial nerve deficits. Motor grossly within normal limits. Normal speech. Medical Decision Making MDM Narrative Medical decision making narrative: Mental health screening discussed with the patient. Psychiatric screen ordered. The patient had lab work performed yesterday which has been reviewed. She is medically cleared for psychiatric disposition. Differential Diagnosis Differential Diagnosis: Schizophrenia, schizoaffective disorder, acute psychosis , substance-induced mood disorder Discharge Plan Discharge Disposition Patient Disposition: 30 Still Patient Discharge Condition Condition: Stable Discharge Details Diagnosis: Medical clearance for psychiatric admission Physicians Team ED Provider: Hannah Tsai ED Midlevel Provider: Darwin Collins Rxs /Orders / Referrals /Forms Prescriptions: No Action No Known Home Medications RF: 0 Status ED Status: With Doctor
[2017-10-25] MEDS ORDERED: Haloperidol Inj 5 MG/ML Ampul IM PRN (11:57)
[2017-10-25] MEDS ORDERED: LORazepam 1 MG Tablet PO PRN (11:57)
[2017-10-25] MEDS ORDERED: Aluminum/Magnesium/Simethacone Susp 30 ML UDC PO PRN (11:57)
[2017-10-25] MEDS ORDERED: Bisacodyl 10 MG Supp RECTAL PRN (11:57)
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
[2017-10-25] MEDS: QUEtiapine 25 MG Tablet PO SCH (20:47)
[2017-10-26 08:44] LABS: Anion Gap 7 meq/L (5-15); Blood Urea Nitrogen 7 mg/dL (7-18); Calcium 8.4 mg/dL (8.5-10.1); Carbon Dioxide 28.5 meq/L (21.0-32.0); Chloride 107 meq/L (98-107); Glomerular Filtration Rate Greater Than 89 mL/min (>89); Glucose,Random 85 mg/dL (74-106); Potassium 3.4 meq/L (3.5-5.1); Sodium 142 meq/L (136-145)
[2017-10-26 08:45] LABS: Cholesterol 115 mg/dL (120-200)
[2017-10-26 08:47] LABS: Chol/HDL Ratio 1.57 Ratio; HDL Cholesterol 73.1 mg/dL (40.0-60.0); LDL Cholesterol,Calculated 32 mg/dL (0-99); Triglycerides 50 mg/dL (42-150)
[2017-10-26] MEDS: QUEtiapine 25 MG Tablet PO SCH ×2 (10:27→20:56)
[2017-10-26 10:32] LABS: Hemoglobin A1c 4.6 % (4.3-6.0)
--- NOTE | 2017-10-26 14:23 | P.PNPSY ---
Subjective Remarks: This is a request for second opinion. Admission note was reviewed and I agree with the history. Patient was seen and case was discussed with nursing. Patient is irritable and argumentative during the interview. She has a fixed delusion that there are a group of people that are conspiring to harm her and her daughter. She refuses to take any medications and is internally preoccupied throughout the day Mental Status Examination Appearance: Appropriate Consciousness: Alert Orientation: x4 Speech: Unremarkable Language: Adequate Fund of Knowledge: Adequate Memory: Unremarkable Mood: Oppositional Affect: Irritable Thought Process & Associations: Intact Thought Content: Appropriate Hallucination Type: Visual Delusion Type: Paranoid Suicidal Ideation: No Suicidal Plan: No Suicidal Intention: No Homicidal Ideation: No Homicidal Plan: No Homicidal Intention: No Insight: Poor Judgment: Poor Assessment and Plan - Plan Plan: I agree with the first opinion to continue petition. Criteria include acute psychosis Justification for Continued Inpatient Stay: Patient would decompensate in a less restrictive setting
[2017-10-27] MEDS: QUEtiapine 25 MG Tablet PO SCH ×2 (09:19→22:21)
--- NOTE | 2017-10-27 14:21 | P.PNPSY ---
Subjective Remarks: Patient was seen and case discussed with nursing. Patient is continuing to refuse her antipsychotic. She continues to have her fixed delusion. She is largely seclusive to self. She does deny auditory or visual hallucinations here in this unit eating and sleeping well Mental Status Examination Appearance: Appropriate Consciousness: Alert Orientation: x4 Speech: Unremarkable Language: Adequate Fund of Knowledge: Adequate Memory: Unremarkable Mood: Oppositional Affect: Irritable Thought Process & Associations: Intact Thought Content: Appropriate Hallucination Type: Visual Delusion Type: Paranoid Suicidal Ideation: No Suicidal Plan: No Suicidal Intention: No Homicidal Ideation: No Homicidal Plan: No Homicidal Intention: No Insight: Poor Judgment: Poor Assessment and Plan - Plan Plan: Continue current treatment plan Justification for Continued Inpatient Stay: Patient would decompensate in a less restrictive setting
[2017-10-28] MEDS: QUEtiapine 25 MG Tablet PO SCH ×2 (09:09→20:45)
--- NOTE | 2017-10-28 16:14 | P.PNPSY ---
Subjective Remarks: The patient was seen today for psychiatric reevaluation. Documentation from the weekend reviewed. The patient continues to be quite oppositional, guarded, making accusations that she has been called here against her will. The patient continues to have a delusion that people has been trying to harm her and harm her daughter, she says that she has proof of it. The patient denies that she has ever say that she was hearing voices, she says that we "are inventing does lyes". She has been no taking her medications, isolated in the unit, at times agitated, but redirectable. Is oriented 3, but she was not able to recognize me from our previous encounter on Saturday in the ER. Mental Status Examination Appearance: Appropriate Consciousness: Alert Orientation: x4 Speech: Unremarkable Language: Adequate Fund of Knowledge: Adequate Memory: Unremarkable Mood: Oppositional Affect: Irritable Thought Process & Associations: Intact Thought Content: Appropriate Hallucination Type: Visual Delusion Type: Paranoid Suicidal Ideation: No Suicidal Plan: No Suicidal Intention: No Homicidal Ideation: No Homicidal Plan: No Homicidal Intention: No Insight: Poor Judgment: Poor Assessment and Plan - Assessment (1) Unspecified psychosis Code(s): F29 - Unspecified psychosis not due to a substance or known physiological condition Status: Acute - Plan Plan: Patient continues to be very paranoid, guarded, internally preoccupied, poorly cooperative and not taking her medications. Continue Seroquel 25 mg twice daily. I try to get in contact with her daughter to discuss the possibility of IM medication. The daughter did not warp picker the phone Justification for Continued Inpatient Stay: Patient is acutely psychotic.
[2017-10-29] MEDS: QUEtiapine 25 MG Tablet PO SCH ×2 (10:40→21:20)
--- NOTE | 2017-10-29 14:51 | P.PNPSY ---
Subjective Remarks: The patient was seen today for psychiatric reevaluation. Patient was calm, much more cooperative than yesterday, she reports being a better mood, good sleep at night, good level of appetite. The patient says that she has not have any thoughts of harming herself or harming another person she denies any paranoia, denies any safety concern at the moment. She denies visual and auditory hallucinations at the moment. I could not elicit any loosening of associations, delusions, aggressive behavior or agitation. She has been consistently refusing to take medications. Mental Status Examination Appearance: Appropriate Consciousness: Alert Orientation: x4 Speech: Unremarkable Language: Adequate Fund of Knowledge: Adequate Memory: Unremarkable Mood: Oppositional Affect: Irritable Thought Process & Associations: Intact Thought Content: Appropriate Hallucination Type: Visual Delusion Type: Paranoid Suicidal Ideation: No Suicidal Plan: No Suicidal Intention: No Homicidal Ideation: No Homicidal Plan: No Homicidal Intention: No Insight: Poor Judgment: Poor Assessment and Plan - Assessment (1) Unspecified psychosis Code(s): F29 - Unspecified psychosis not due to a substance or known physiological condition Status: Acute - Plan Plan: Patient seems to be more cooperative today. Consistently not taking medications. Denies suicidal enemas ideation, denies visual and auditory hallucinations at the moment. Justification for Continued Inpatient Stay: Patient has an elevated risk to decompensate at a lower level of care.
[2017-10-30 06:54] VITALS: BP 136/68; PULSE 76; RESP 14; TEMP 97.7; O2SAT 94
[2017-10-30] MEDS: QUEtiapine 25 MG Tablet PO SCH (09:41)
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
== END 2017-10-30 15:35 | disposition home or self-care (01) ==
LOC: NEPJ 02:54 → NEDA 12:04 → H260 14:35
PROVIDERS: ADMIT Psychiatry & Neurology Psychiatry; ATTEND Psychiatry & Neurology Psychiatry